=== PATIENT | male | born 1975 | race Asian ===

== ENCOUNTER 2017-01-18 23:48 | Emergency (ER) | payer OTHER ==
[2017-01-19 01:38] VITALS: BP 147/94; PULSE 88; TEMP 98.1; BMI 24.7
--- NOTE | 2017-01-19 02:06 | PDOC ---
History of Present Illness - General History Source: Patient Exam Limitations: No Limitations - History of Present Illness Initial Comments: 01/19/17 02:13 The patient is a 41 year old male with no significant PMH who presents to the emergency department with gross hematuria for the past four days and sharp left flank pain for the past two days. The patient went to see Dr. Ramires who prescribed Tylenol codeine, phenazopyridine, and antibiotics with no relief of symptoms. The patient denies headache, dizziness, fever, chills, nausea, vomit, diarrhea and constipation. Denies dysuria, frequency, and urgency. Allergies: NKA Past surgical history: None reported. Social history: No reported alcohol, drug, or cigarette use. PCP: Dr. Sapp <Char Joe - Last Filed: 01/19/17 02:13> - General History Source: Patient <Juliocesar Delgado - Last Filed: 01/19/17 04:43> - General Chief Complaint: Pain Stated Complaint: PAIN Time Seen by Provider: 01/19/17 01:54 Past History <Char Joe - Last Filed: 01/19/17 02:13> - Suicide/Smoking/Psychosocial Hx Smoking History: Never smoked Have you smoked in the past 12 months: No Information on smoking cessation initiated: No Hx Alcohol Use: No Drug/Substance Use Hx: No <Juliocesar Delgado - Last Filed: 01/19/17 04:43> - Past Medical History Allergies/Adverse Reactions: Allergies Allergy/AdvReac Type Severity Reaction Status Date / Time No Known Allergies Allergy Verified 01/19/17 01:04 Home Medications: Ambulatory Orders NK [No Known Home Medication] 01/19/17 Review of Systems - Review of Systems Able to Perform ROS?: Yes Comments:: 01/19/17 02:10 CONSTITUTIONAL: Absent: fever, no chills, no fatigue EYES: Absent: visual changes ENT: Absent: ear pain, no sore throat CARDIOVASCULAR: Absent: chest pain, no palpitations RESPIRATORY: Absent: cough, no SOB GI: Absent: abdominal pain, no nausea, no vomiting, no constipation, no diarrhea Present: Left flank pain. GENITOURINARY: Absent: dysuria, no frequency Present: Hematuria. MUSKULOSKELETAL: Absent: back pain, no arthralgia, no myalgia SKIN: Absent: rash NEURO: Absent: headache <Char Joe - Last Filed: 01/19/17 02:13> *Physical Exam - Vital Signs Last Vital Signs Temp Pulse Resp BP Pulse Ox 98.1 F 88 14 147/94 100 01/19/17 01:05 01/19/17 01:05 01/19/17 01:05 01/19/17 01:05 01/19/17 01:05 - Physical Exam Comments: 01/19/17 02:10 GENERAL: (+) Mild distress. Well developed, well nourished. Awake and alert. HEENT: Normocephalic, atraumatic. PERRLA, EOMI. No conjunctival pallor. Sclera are non- icteric. Moist mucous membranes. Oropharynx is clear. NECK: Supple. Full ROM. No JVD. Carotid pulses 2+ and symmetric, without bruits. No thyromegaly. No lymphadenopathy. CARDIOVASCULAR: Regular rate and rhythm. No murmurs, rubs, or gallops. Distal pulses are 2+ and symmetric. PULMONARY: No evidence of respiratory distress. Lungs clear to auscultation bilaterally. No wheezing, rales or rhonchi. ABDOMINAL: Soft. Non-tender. Non-distended. No rebound or guarding. No organomegaly. Normoactive bowel sounds. MUSCULOSKELETAL (+) Left CVA tenderness. Normal range of motion at all joints. No bony deformities or tenderness. EXTREMITIES: No cyanosis. No clubbing. No edema. No calf tenderness. SKIN: Warm and dry. Normal capillary refill. No rashes. No jaundice. NEUROLOGICAL: Alert, awake, appropriate. Cranial nerves 2-12 intact. No deficits to light touch and temperature in face, upper extremities and lower extremities. No motor deficits in the in face, upper extremities and lower extremities. Normoreflexic in the upper and lower extremities. Normal speech. Toes are down- going bilaterally. Gait is normal without ataxia. PSYCHIATRIC: Cooperative. Good eye contact. Appropriate mood and affect. <Heath,Daisy - Last Filed: 01/19/17 02:13> - Vital Signs Last Vital Signs Temp Pulse Resp BP Pulse Ox 98.1 F 88 14 147/94 100 01/19/17 01:05 01/19/17 01:05 01/19/17 01:05 01/19/17 01:05 01/19/17 01:05 <Juliocesar Delgado - Last Filed: 01/19/17 04:43> *DC/Admit/Observation/Transfer - Attestations Scribe Attestion: 01/19/17 02:32 Documentation prepared by Char Joe, acting as medical interpreter for Juliocesar Delgado DO. <Char Joe - Last Filed: 01/19/17 02:13> - Discharge Dispostion Admit: No <Juliocesar Delgado - Last Filed: 01/19/17 04:43> Diagnosis at time of Disposition: Renal colic on left side - Discharge Dispostion Disposition: HOME Condition at time of disposition: Stable - Referrals Referrals: Jordan Sapp MD [Primary Care Provider] - Ernesto Ramires MD [Staff Physician] - - Patient Instructions Printed Discharge Instructions: DI for Kidney Stones Additional Instructions: continue with all you medications. Avoid driving while taking Tylenol #3 that you have been prescribed. Follow up on your usual scheduled appointment - Post Discharge Activity
[2017-01-19] MEDS ORDERED: KETOROLAC TROMETHAMINE 60 MG/2 ML VIAL ONE (02:54)
[2017-01-19 03:14] LABS: URINE APPEARANCE CLEAR; URINE BILIRUBIN NEGATIVE (NEGATIVE); URINE BLOOD 1+ (NEGATIVE); URINE COLOR AMBER; URINE GLUCOSE (UA) NEGATIVE (NEGATIVE); URINE KETONE TRACE (NEGATIVE); URINE NITRITE POSITIVE (NEGATIVE); URINE PROTEIN NEGATIVE (NEGATIVE); URINE UROBILINOGEN 4.0 E.U/dl mg/dL (0.2-1.0)
[2017-01-19] MEDS ORDERED: KETOROLAC TROMETHAMINE 60 MG/2 ML VIAL IM ONE (03:35)
[2017-01-19 09:46] LABS: URINE LEUK ESTERASE Negative (NEGATIVE)
--- NOTE | 2017-01-19 10:50 | PDOC ---
Patient Follow-up (Call Back) - Post ED Follow - Up Condition at time of discharge: Stable Disposition at time of original discharge: HOME Reason for Call Back: Radiology (Was called by Dr. Noble, patient CT scan demonstrated possibility of a left diverticulitis spoke to Dr. Sapp who will follow up)
== END 2017-01-19 05:00 | disposition home or self-care (01) ==
LOC: JER 23:48
PROC: 3E0233Z Introduction of Anti-inflammatory into Muscle, Percutaneous Approach (ICD-10-PCS; principal; 2017-01-18)
DX: N23 Unspecified renal colic (principal)
CPT/HCPCS: 74176; 81003; 81015; 87086; 99281-25; 99282-25